=== PATIENT | male | born 1955 | race Hispanic/Latino ===

== ENCOUNTER 2018-03-14 14:58 | Emergency (ER) | payer MEDICAID ==
[2018-03-14 15:27] VITALS: RESP 18; BMI 34.7
--- NOTE | 2018-03-14 15:57 | ED PDOC ---
Arrival/HPI - General Chief Complaint: Lower Extremity Problem/Injury Time Seen by Provider: 03/14/18 15:22 Historian: Patient - History of Present Illness Narrative History of Present Illness (Text): 03/14/18 15:41 62yr old male presents today with left knee pain and left leg pain and swelling x 4 days. pt denies cp or sob at present time. no abdominal pain. no n/v/d/c. pt denies trauma or injury. pt states today he noticed his left leg is much larger than the right. pt states he has been traveling a lot lately. pt states the majority of the pain is along the medial aspect of the knee. pt states he has been walking with a limp. pt denies fever/chills. pt states the pain is constant. pt c/o calf pain. denies numbness, weakness, tingling in the extremity. Time/Duration: Other (4 days) Past Medical History - Provider Review Nursing Documentation Reviewed: Yes - Travel History Have you recently traveled outside [place] w/in the past 3 mons?: No - Past History Past History: No Previous - Infectious Disease Hx of Infectious Diseases: None - Tetanus Immunization Tetanus Immunization: Unknown, Up to Date - Cardiac Hx Cardiac Disorders: Yes - Pulmonary Hx Respiratory Disorders: Yes Hx Asthma: Yes - Neurological Hx Neurological Disorder: No Hx Alzheimer's Disease: No - HEENT Hx HEENT Disorder: No - Renal Hx Renal Disorder: Yes Hx Kidney Stones: Yes - Endocrine/Metabolic Hx Endocrine Disorders: No - Hematological/Oncological Hx Blood Disorders: No - Integumentary Hx Dermatological Disorder: No - Musculoskeletal/Rheumatological Hx Musculoskeletal Disorders: No - Gastrointestinal Hx Gastrointestinal Disorders: No - Genitourinary/Gynecological Hx Genitourinary Disorders: No - Psychiatric Hx Psychophysiologic Disorder: No Hx Depression: No Hx Emotional Abuse: No Hx Physical Abuse: No Hx Substance Use: No - Past Surgical History Past Surgical History: Non-Contributing - Surgical History Hx Orthopedic Surgery: Yes (rotator cuff surgery) Other/Comment: Renal surgery - kidney stones. Rotator cuff 07/22/16 - Anesthesia Hx Anesthesia: Yes Hx Anesthesia Reactions: No Hx Malignant Hyperthermia: No - Suicidal Assessment Feels Threatened In Home Enviroment: No Family/Social History - Physician Review Nursing Documentation Reviewed: Yes Family/Social History: Unknown Family HX Smoking Status: Never Smoked Hx Alcohol Use: No Hx Substance Use: No Hx Substance Use Treatment: No Allergies/Home Meds Allergies/Adverse Reactions: Allergies iodine Allergy (Verified 11/19/16 17:32) ANAPHYLAXIS Iodine and Iodide Containing Produc Allergy (Verified 11/19/16 17:32) ANAPHYLAXIS contrast Allergy (Uncoded 11/19/16 17:32) ANAPHYLAXIS Home Medications: Home Meds Medication Instructions Recorded Confirmed Simvastatin [Simvastatin] 10 mg PO HS 12/17/15 03/14/18 Review of Systems - Review of Systems Constitutional: absent: Fatigue, Fevers Respiratory: absent: SOB, Cough Cardiovascular: absent: Chest Pain, Palpitations Gastrointestinal: absent: Abdominal Pain, Nausea, Vomiting Genitourinary Male: absent: Dysuria Musculoskeletal: Arthralgias. absent: Back Pain, Neck Pain Skin: absent: Rash, Pruritis Neurological: absent: Headache, Dizziness Psychiatric: absent: Anxiety, Depression, Suicidal Ideation Physical Exam Vital Signs Reviewed: Yes Vital Signs Temp Pulse Resp BP Pulse Ox 03/14/18 15:22 97.5 F L 62 18 134/77 95 Temperature: Afebrile Blood Pressure: Normal Pulse: Regular Respiratory Rate: Normal Appearance: Positive for: Well-Appearing, Non-Toxic, Comfortable Pain Distress: None Mental Status: Positive for: Alert and Oriented X 3 - Systems Exam Head: Present: Atraumatic Mouth: Present: Moist Mucous Membranes Neck: Present: Normal Range of Motion Respiratory/Chest: Present: Clear to Auscultation, Good Air Exchange. No: Respiratory Distress, Accessory Muscle Use Cardiovascular: Present: Regular Rate and Rhythm, Normal S1, S2. No: Murmurs Abdomen: No: Tenderness, Distention, Peritoneal Signs, Rebound, Guarding Upper Extremity: Present: Normal Inspection Lower Extremity: Present: CALF TENDERNESS, NORMAL PULSES, Normal ROM, Tenderness , Swelling, Neurovascularly Intact, Capillary Refill < 2 s. No: Erythema, Deformity, Temperature Abnormalties Neurological: Present: GCS=15 Skin: Present: Warm, Dry, Normal Color. 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 cane given for ambulation. i advised the patient that although the xrays show no fracture; there is still a possibility for ligamentous or tendon injury the patient must see the orthopedist for further evaluation. all results discussed in depth with patient; pt advised to f/u with orthopedist within the next 2 days. Patient verbalizes understanding of discharge instructions and need for immediate followup. all aspects of this case were discussed the attending of record. Impression: Knee pain, leg pain Motrin every 6 hours as needed for pain Rest, ice, compression, elevation Follow-up the orthopedist within the next 2 days Follow-up with primary care physician within the next 2 days Return immediately if symptoms worsen persist or if new concerning symptoms develop - RAD Interpretation Radiology Orders: 03/14/18 15:40 KNEE WITH PATELLA LEFT 3 VIEW [RAD] Stat 03/14/18 15:41 DUPLEX LOWER EXTRM VEIN LEFT [US] Stat Disposition/Present on Arrival - Present on Arrival Any Indicators Present on Arrival: No History of DVT/PE: No History of Uncontrolled Diabetes: No Urinary Catheter: No History of Decub. Ulcer: No History Surgical Site Infection Following: None - Disposition Have Diagnosis and Disposition been Completed?: Yes Diagnosis: Knee pain, Leg pain Disposition: HOME/ ROUTINE Disposition Time: 16:59 Patient Plan: Discharge Condition: GOOD Discharge Instructions (ExitCare): Knee Pain Additional Instructions: Motrin every 6 hours as needed for pain Rest, ice, compression, elevation Follow-up the orthopedist within the next 2 days Follow-up with primary care physician within the next 2 days Return immediately if symptoms worsen persist or if new concerning symptoms develop Prescriptions: Ibuprofen [Motrin] 600 mg PO Q6H PRN #20 tab PRN Reason: pain/fever reduction Referrals: Alexa Pelaez MD [Primary Care Provider] - Follow up with primary Jaswinder Bliss III, MD [Medical Doctor] - Follow up with primary Forms: [employer] (Albanian), WORK NOTE
[2018-03-14 17:52] VITALS: BP 149/88; PULSE 80; TEMP 97.6; O2SAT 100
--- NOTE | 2018-03-15 07:59 | RAD ---
PROCEDURE: Left Knee Radiographs. HISTORY: Pain. COMPARISON: None. FINDINGS: BONES: No acute fracture or destructive bony lesion identified. JOINTS: Degenerative joint space narrowing seen the patellofemoral and medial femorotibial compartment with marginal osteophytes at the lateral portion of the patellofemoral joint. No subluxation or dislocation appreciable. JOINT EFFUSION: Trace suprapatellar bursa effusion. OTHER FINDINGS: None. IMPRESSION: Moderate degenerative joint disease. No acute fracture or dislocation appreciated.
--- NOTE | 2018-03-15 16:02 | US ---
PROCEDURE: Left lower extremity venous US HISTORY: Leg pain and swelling. Evaluate for DVT. PHYSICIAN(S): Joe Infante MD. TECHNIQUE: Duplex sonography and color-flow Doppler with graded compression were used to evaluate the deep venous system of the left lower extremity. FINDINGS: The visualized deep venous system of the left lower extremity is sonographically normal and compressible. Normal wave forms and augmentation are seen. There is no sonographic evidence for deep venous thrombosis in the visualized segments of the left lower extremity. IMPRESSION: 1. No sonographic evidence for deep venous thrombosis in the visualized segments of the left lower extremity.
== END 2018-03-14 17:55 | disposition home or self-care (01) ==
LOC: ED 14:58
DX: M25.562 Pain in left knee (principal)

== ENCOUNTER 2018-04-09 19:13 | Emergency (ER) | payer MEDICAID ==
[2018-04-09 19:14] VITALS: BMI 34.9
--- NOTE | 2018-04-09 20:53 | ED PDOC ---
Arrival/HPI - General Chief Complaint: Lower Extremity Problem/Injury Time Seen by Provider: 04/09/18 19:25 Historian: Patient - History of Present Illness Narrative History of Present Illness (Text): 04/09/18 20:49 63 year old male presents to the Emergency department complaining of left knee discomfort and occasional left knee swelling for approximately 1 month. Pain occurs with ambulating and with certain movements of knee. Patient states he has taken NSAIDs with only minimal relief. Patient was seen in the Emergency department 1 month ago, had a Doppler study of leg and x-ray of knee; both were negative except for moderate degenerative changes of the knee. Patient did not have a DVT. Patient denies any history of trauma, fever, chills, chest pain, shortness of breath, nausea, vomiting, diarrhea, urinary symptoms, back pain, neck pain, headache, dizziness, or any other complaints. Time/Duration: Other (1 month ago) Symptom Onset: Gradual Symptom Course: Unchanged Context: Home Past Medical History - Provider Review Nursing Documentation Reviewed: Yes - Past History Past History: No Previous - Infectious Disease Hx of Infectious Diseases: None - Tetanus Immunization Tetanus Immunization: Unknown, Up to Date - Cardiac Hx Cardiac Disorders: Yes - Pulmonary Hx Respiratory Disorders: Yes Hx Asthma: Yes - Neurological Hx Neurological Disorder: No Hx Alzheimer's Disease: No - HEENT Hx HEENT Disorder: No - Renal Hx Renal Disorder: Yes Hx Kidney Stones: Yes - Endocrine/Metabolic Hx Endocrine Disorders: No - Hematological/Oncological Hx Blood Disorders: No - Integumentary Hx Dermatological Disorder: No - Musculoskeletal/Rheumatological Hx Musculoskeletal Disorders: Yes Other/Comment: L KNEE PAIN - Gastrointestinal Hx Gastrointestinal Disorders: No - Genitourinary/Gynecological Hx Genitourinary Disorders: No - Psychiatric Hx Psychophysiologic Disorder: No Hx Depression: No Hx Emotional Abuse: No Hx Physical Abuse: No Hx Substance Use: No - Past Surgical History Past Surgical History: Non-Contributing - Surgical History Other/Comment: Renal surgery. Rotator cuff 07/22/16 - Anesthesia Hx Anesthesia: Yes Hx Anesthesia Reactions: No Hx Malignant Hyperthermia: No - Suicidal Assessment Feels Threatened In Home Enviroment: No Family/Social History - Physician Review Nursing Documentation Reviewed: Yes Family/Social History: Unknown Family HX Smoking Status: Never Smoked Hx Alcohol Use: No Hx Substance Use: No Hx Substance Use Treatment: No Allergies/Home Meds Allergies/Adverse Reactions: Allergies iodine Allergy (Verified 04/09/18 19:22) ANAPHYLAXIS Iodine and Iodide Containing Produc Allergy (Verified 04/09/18 19:22) ANAPHYLAXIS contrast Allergy (Uncoded 04/09/18 19:22) ANAPHYLAXIS Home Medications: Home Meds Medication Instructions Recorded Confirmed Simvastatin [Simvastatin] 10 mg PO HS 12/17/15 04/09/18 Review of Systems - Physician Review All systems were reviewed & negative as marked: Yes - Review of Systems Constitutional: absent: Fevers, Night Sweats Respiratory: absent: SOB Cardiovascular: absent: Chest Pain Gastrointestinal: absent: Diarrhea, Nausea, Vomiting Genitourinary Male: absent: Dysuria Musculoskeletal: Other (left knee discomfort and swelling). absent: Back Pain, Neck Pain Neurological: absent: Headache, Dizziness Physical Exam Vital Signs Reviewed: Yes Vital Signs Temp Pulse Resp BP Pulse Ox 04/09/18 21:52 97.7 F 68 18 130/82 96 04/09/18 20:25 68 14 125/85 96 04/09/18 19:23 97.1 F L 73 16 137/87 96 Temperature: Hypothermic Blood Pressure: Normal Pulse: Regular Respiratory Rate: Normal Appearance: Positive for: Well-Appearing, Non-Toxic, Comfortable Pain Distress: None Mental Status: Positive for: Alert and Oriented X 3 - Systems Exam Head: Present: Atraumatic, Normocephalic Pupils: Present: PERRL Extroacular Muscles: Present: EOMI Conjunctiva: Present: Normal Mouth: Present: Moist Mucous Membranes Neck: Present: Normal Range of Motion Respiratory/Chest: Present: Clear to Auscultation, Good Air Exchange. No: Respiratory Distress, Accessory Muscle Use Cardiovascular: Present: Regular Rate and Rhythm, Normal S1, S2. No: Murmurs Abdomen: No: Tenderness, Distention, Peritoneal Signs Back: Present: Normal Inspection Upper Extremity: Present: Normal Inspection. No: Cyanosis, Edema Lower Extremity: Present: Normal ROM, Other (slight discomfort of lateral aspect of left knee with flexion and extension). No: Edema, CALF TENDERNESS, Jack's Sign Neurological: Present: GCS=15, CN II-XII Intact, Speech Normal Skin: Present: Warm, Dry, Normal Color. No: Rashes Psychiatric: Present: Alert, Oriented x 3, Normal Insight, Normal Concentration Medical Decision Making ED Course and Treatment: 04/09/18 20:56 Impression: 63 year old male presents to the Emergency department complaining of left knee discomfort. Plan: -- Left knee xray -- Left lower extremity Duplex -- Ultram -- Reassess and disposition Prior Visits: Notes and results from previous visits were reviewed. Patient was last seen in the emergency department on 03/14/18 for left knee pain and left leg pain and swelling. Patient was discharged home. Progress Notes: 04/09/18 19:43 Left Lower extremity Duplex Impression: Negative. No DVT. 04/09/18 21:39 Left Knee X-ray Impression: As read by me, no acute process. No change from Knee x-ray on 03/14/18. 04/09/18 22:36 On reevaluation the patient feels better and is in no acute distress. I have discussed the results and plan with the patient, who expresses understanding. Patient given the opportunity to ask question, all questions were answered and there is agreement with the plan to discharge the patient home. Patient is stable for discharge. Patient was instructed to follow up with physician/clinic in 1-2 days or return if symptoms persist/worsen or new concerning symptoms arise. - RAD Interpretation Radiology Orders: 04/09/18 19:43 DUPLEX LOWER EXTRM VEIN LEFT [US] Stat 04/09/18 19:46 KNEE LEFT 2 VIEWS (AP & LAT) [RAD] Stat - Medication Orders Current Medication Orders: Discontinued Medications Tramadol HCl (Ultram) 50 mg PO STAT STA Stop: 04/09/18 20:37 Last Admin: 04/09/18 20:45 Dose: Not Given Non-Admin Reason: Patient Refused - Scribe Statement The provider has reviewed the documentation as recorded by the Lauren Hein Provider Scribe Attestation: All medical record entries made by the Scribe were at my direction and personally dictated by me. I have reviewed the chart and agree that the record accurately reflects my personal performance of the history, physical exam, medical decision making, and the department course for this patient. I have also personally directed, reviewed, and agree with the discharge instructions and disposition. Disposition/Present on Arrival - Present on Arrival Any Indicators Present on Arrival: No History of DVT/PE: No History of Uncontrolled Diabetes: No Urinary Catheter: No History of Decub. Ulcer: No History Surgical Site Infection Following: None - Disposition Have Diagnosis and Disposition been Completed?: Yes Diagnosis: Knee pain, Osteoarthritis Disposition: HOME/ ROUTINE Disposition Time: 22:27 Patient Plan: Discharge Patient Problems: Current Active Problems Problem Status Onset Knee pain Acute Osteoarthritis Acute Condition: GOOD Discharge Instructions (ExitCare): Osteoarthritis (DC), Chronic Knee Pain (DC) , Knee Pain (DC) Additional Instructions: Maintain knee immobilizer/use crutches/no weight bearing on the affected area/ take meds as prescribed/follow up with the orthopedist this week Prescriptions: Tramadol HCl [Ultram] 50 mg PO Q6 PRN #14 tab PRN Reason: Pain, Moderate (4-7) Referrals: Romeo Bird MD [Primary Care Provider] - Follow up with primary Niraj Trejo MD [Staff Provider] - Follow up with primary Forms: [employer] (Niuean)
[2018-04-09 21:53] VITALS: RESP 18
[2018-04-09 22:42] VITALS: BP 132/83; PULSE 66; TEMP 98; O2SAT 99
--- NOTE | 2018-04-10 08:14 | RAD ---
PROCEDURE: Left Knee Radiographs. HISTORY: Pain. COMPARISON: None. FINDINGS: BONES: Normal. No fracture. JOINTS: Normal. No osteoarthritis. JOINT EFFUSION: None. OTHER FINDINGS: None. IMPRESSION: Normal radiographs of the left knee.
== END 2018-04-09 22:31 | disposition home or self-care (01) ==
LOC: ED 19:13
DX: M17.12 Unilateral primary osteoarthritis, left knee (principal); M25.562 Pain in left knee

== ENCOUNTER 2019-03-20 15:40 | Outpatient (CLI) | payer MEDICAID | END 2019-03-20 15:41 | disposition home or self-care (01) | LOC: RAD 15:41 ==